=== PATIENT | male | born 1990 | race Two or more races ===

== ENCOUNTER 2022-04-05 08:16 | Emergency (ER) | payer MEDICAID, OTHER ==
[~2022-04-05] VITALS: Ht 185.4 cm; Wt 111.5 kg
[2022-04-05 08:28] VITALS: BP 117/61
[2022-04-05 08:56] LABS: Urine Bacteria NONE SEEN /hpf (None Seen); Urine Blood Negative /uL (Negative); Urine Hyaline Cast FEW /lpf (0 - 2); Urine Mucus FEW (None Seen); Urine Specific Gravity 1.032 (1.001-1.035); Urine WBC 2 /hpf (0 - 3)
[2022-04-05] MEDS ORDERED: SODIUM CHLORIDE 0.9% 1,000 ML IV ONE (09:00)
[2022-04-05] MEDS ORDERED: ONDANSETRON HCL 4 MG/2 ML VIAL IV ONE (09:00)
[2022-04-05] MEDS ORDERED: FAMOTIDINE (10MG/ML) 2ML VL IV ONE (09:00)
[2022-04-05 09:46] LABS: Basophils # (auto) 0 10 ^3/uL (0-0.2); Basophils % (auto) 0.4 % (0.0-2.0); Eosinophils # (auto) 0.2 10 ^3/uL (0-0.8); Hemoglobin 14.4 g/dL (13.5-17.5); Lymphocytes % (auto) 16.4 % (10.0-50.0); Mean Corpuscular Hemoglobin 27.1 pg (28.0-32.0); Mean Corpuscular Hgb Conc. 32.8 g/dL (32.0-36.0); Mean Corpuscular Volume 82.7 fL (80.0-100.0); Monocytes # (auto) 1.1 10 ^3/uL (0-1.3); Monocytes % (auto) 9.2 % (0.0-12.0); Neutrophils # (auto) 8.7 10 ^3/uL (1.6-8.6); Red Blood Cells 5.32 10^6/uL (4.5-5.90); Red Cell Distribution Width 13.3 % (11.8-14.3); White Blood Cell 12.1 10^3/uL (4.4-10.8)
[2022-04-05 09:49] LABS: Albumin 3.4 g/dL (3.4-5.0); Calcium 8.9 mg/dL (8.5-10.1); Potassium 3.6 mmol/L (3.5-5.1)
[2022-04-05 09:52] LABS: BUN/Creatinine Ratio 21.2; Bilirubin, Total 0.4 mg/dL (0.2-1.0); Total Protein 7.5 g/dL (6.4-8.2)
[2022-04-05] MEDS ORDERED: cefTRIAXone SOD 1,000 MG VL IM ONE (10:00)
[2022-04-05] MEDS ORDERED: ONDA-144 PO (10:28)
[2022-04-05] MEDS ORDERED: DICY10CA GT (10:28)
== END 2022-04-05 10:41 | disposition home or self-care (01) ==
LOC: ER 08:16
DX: K52.9 Noninfective gastroenteritis and colitis, unspecified (principal); J03.90 Acute tonsillitis, unspecified; K76.0 Fatty (change of) liver, not elsewhere classified
CPT/HCPCS: 36415; 76705; 80053; 81001; 83690; 85025; 96361; 96372; 96374; 96375; 99284; J0696; J2405; J3490; J7030

== ENCOUNTER 2024-11-24 14:09 | Emergency (ER) | payer MEDICAID, OTHER ==
[~2024-11-24] VITALS: Ht 185.4 cm; Wt 123.7 kg
[~2024-11-24 14:09] MED LIST: DICY10CA GT; ONDA-144 PO
--- NOTE | 2024-11-24 15:29 | ED.PDOC ---
Back pain HPI HPI Comments 34 y/o M, with no prior medical history presents to the ED for CC of back pain. Patient states, he has been experiencing lower back pain that radiates to his suprapubic abdominal area x5days. Patient reports, pain to worsen when moving and repositioning. Patient denies fall, lifting, bending, twisting, or strenuous activity. No other symptoms or modifying factors present at this time. Chief Complaint: Back Pain Time Seen by MD: 15:10 Primary Care Provider: UNKNOWN Reviewed Notes: Nurses Notes, Medications, Allergies Allergies: Coded Allergies: NO KNOWN ALLERGIES (Unverified , 04/05/22) Home Meds Active Scripts Dicyclomine Hcl (BENTYL CAPSULE) 10 Mg Cp, 20 MG GT TID, #21 CAP Prov:ANA MANCINI 04/05/22 Ondansetron (Zofran) 4 Mg Tab, 1 TAB PO Q6HR, #15 TAB Prov:ANA MANCINI 04/05/22 Information Source: Patient Mode of Arrival: Ambulatory Timing: Days Duration: Since onset Location of Back pain: (B) Buttocks Severity: Moderate Prehospital treatment: None Onset: Spontaneous History of: None Modifying Factors: Movement Associated signs and symptoms: None Past Medical History PAST MEDICAL HISTORY: Denies Surgical History: Denies all surgeries Family History Family History: Reviewed,noncontributory to illness, No family hx of Cancer, No family hx of DM, No family hx of Heart aurora, No family hx of HTN, No family hx ofKidney aurora, No family hx of Liver aurora, No family hx of Lung aurora, No family hx of Stroke Social History Smoker: Non-Smoker Alcohol: Denies ETOH Use Drugs: Denies Drug Use Lives In: Home Constitutional: denies: chills, diaphoresis, fatigue, fever, malaise, sweats, weakness, others EENTM: denies: blurred vision, double vision, ear bleeding, ear discharge, ear drainage, ear pain, ear ringing, eye pain, eye redness, hearing loss, mouth pain, mouth swelling, nasal discharge, nose bleeding, nose congestion, nose pain, photophobia, tearing, throat pain, throat swelling, voice changes, others Respiratory: denies: cough, hemoptysis, orthopnea, SOB at rest, shortness of breath, SOB with excertion, stridor, wheezing, others Cardiovascular: denies: chest pain, dizzy spells, diaphoresis, Dyspnea on exertion, edema, irregular heart beat, left arm pain, lightheadedness, palpitations, PND, syncope, others Gastrointestinal: reports: abdominal pain; denies: abdomen distended, blood streaked bowels, constipated, diarrhea, dysphagia, difficulty swallowing, hematemesis, melena, nausea, poor appetite, poor fluid intake, rectal bleeding, rectal pain, vomiting, others Genitourinary: denies: burning, dysuria, flank pain, frequency, hematuria, incontinence, penile discharge, penile sore, pain, testicle pain, testicle swelling, urgency, others Neurological: denies: dizziness, fainting, headache, left sided numbness, left sided weakness, numbness, paresthesia, pre-existing deficit, right sided numbness, right sided weakness, seizure, speech problems, tingling, tremors, weakness, others Musculoskeletal: reports: back pain; denies: gout, joint pain, joint swelling, muscle pain, muscle stiffness, neck pain, others Integumetry: denies: bruises, change in color, change in hair/nails, dryness, laceration, lesions, lumps, rash, wounds, others Allergic/Immunocompromised: denies: Difficulty Healing, Frequent Infections, Hives, Itching, others Hematologic/Lymphatic: denies: anemia, blood clots, easy bleeding, easy bruising, swollen glands, others Endocrine: denies: excessive hunger, excessive sweating, excessive thirst, excessive urination, flushing, intolerance to cold, intolerance to heat, unexplained weight gain, unexplained weight loss, others Psychiatric: denies: anxiety, bipolar disorder, depression, hopeless, panic disorder, schizophrenia, sleepless, suicidal, others All Other Systems: Reviewed and Negative Physical Exam General Appearance: No Apparent Distress, Normal HEENT: Normal ENT Inspection, Pharynx Normal, TMs Normal Neck: Full Range of Motion, Non-Tender, Normal, Normal Inspection Respiratory: Chest Non-Tender, Lungs Clear, No Accessory Muscle Use, No Respiratory Distress, Normal Breath Sounds Cardiovascular: No Edema, No JVD, No Murmur, No Gallop, Normal Peripheral Pulses, Regular Rate/Rhythm Breast Exam: Deferred Gastrointestinal: No Organomegaly, Non Tender, No Pulsatile Mass, Normal Bowel Sounds, Soft Genitalia: Deferred Pelvic: Deferred Rectal: Deferred Extremities: No calf tenderness, Normal capillary refill, Normal inspection, Normal range of motion, Non-tender, No pedal edema Musculoskeletal : Location: Bilateral Extremity Location: Other (gluteal tenderness) Apperance: Tenderness Neurologic: Alert, vending technician II-XII nml as Tested, No Motor Deficits, Normal Affect, Normal Mood, No Sensory Deficits Cerebellar Function: Normal Reflexes: Normal Skin: Dry, Normal Color, Warm Lymphatic: No Adenopathy Was a procedure done? Was a procedure done?: No Back Pain Differential Dx Differential Diagnosis: Cholelithiasis, Musculoskeletal Pain, Pyelonephritis, Urinary Tract Infection, Urolithiasis X-Ray, Labs, Meds, VS Vital Signs Date Time Temp Pulse Resp B/P (MAP) Pulse Ox O2 Delivery O2 Flow Rate FiO2 11/24/24 15:31 97.2 67 15 137/76 (96) 98 97.2 11/24/24 14:20 97.0 87 18 123/77 (92) 96 97.0 Lab Test 11/24/24 16:00 Range/Units Urine Color Yellow Yellow Urine Clarity Clear Clear Urine pH 5.5 5.0-9.0 Urine Specific [place] 1.030 1.001-1.035 Urine Protein Trace H Negative Urine Ketones Negative Negative Urine Blood Negative Negative /uL Urine Nitrite Negative Negative Urine Bilirubin Negative Negative Urine Urobilinogen Normal Negative mg/dL Urine Leukocyte Esterase Negative Negative /uL Urine RBC 1 0 - 3 /hpf Urine Microscopic WBC 1 0-3 /HPF Urine Squamous Epithelial Cells Few <5 /hpf Urine Bacteria None seen None Seen /hpf Urine Mucus Few None Seen Urine Glucose Normal Normal mg/dL Current Medications Medications (Trade) Dose Ordered Sig/Csotty Route Start Time Stop Time Status Last Admin Ketorolac Tromethamine (Toradol Injection) 60 mg ONCE ONCE IM 11/24/24 15:00 11/24/24 15:01 DC 11/24/24 15:[address] [address] Ph: [phone] DIAGNOSTIC IMAGING Diagnostic Imaging Report : [id number] Signed PATIENT: TAMIKO HERNANDEZ ACCT: [id number] UNIT: [id number] : 1990 LOC: ER ROOM / BED: / AGE / SEX: 34 / M ADM STATUS: REG ER SERVICE 56 ORDERING PHYSICIAN: LEORA DUMONT MD PROCEDURE(s): LHIP - L HIP COMPLETE XRAY REASON: pain ORDER NUMBER(s): [id number], ACCESSION NUMBER(s): [id number] EXAM: XY L HIP COMPLETE XRAY CLINICAL INDICATION: pain TECHNIQUE: XY L HIP COMPLETE XRAY Comparison: None FINDINGS/IMPRESSION: There is no evidence of acute fracture or dislocation. The visualized joint space is well maintained. The alignment is anatomical. There is no radiopaque foreign body. ATED BY: NGOZI LOPEZ MD DICTATED DATE/TIME: 11/24/241529 SIGNED BY: NGOZI LOPEZ MD SIGNED DATE/TIME: 11/24/241529 CC: [place] [id number] Ph: [phone] DIAGNOSTIC IMAGING Diagnostic Imaging Report : [id number] Signed PATIENT: TAMIKO HERNANDEZ ACCT: [id number] UNIT: [id number] : 1990 LOC: ER ROOM / BED: / AGE / SEX: 34 / M ADM STATUS: REG ER SERVICE 56 ORDERING PHYSICIAN: LEORA DUMONT MD PROCEDURE(s): RHIP - R HIP COMPLETE XRAY REASON: pain ORDER NUMBER(s): [id number], ACCESSION NUMBER(s): [id number] EXAM: XY R HIP COMPLETE XRAY CLINICAL INDICATION: pain TECHNIQUE: XY R HIP COMPLETE XRAY Comparison: None FINDINGS/IMPRESSION: There is no evidence of acute fracture or dislocation. The visualized joint space is well maintained. The alignment is anatomical. There is no radiopaque foreign body. ATED BY: NGOZI LOPEZ MD DICTATED DATE/TIME: 11/24/241529 SIGNED BY: NGOZI LOPEZ MD SIGNED DATE/TIME: 11/24/241529 CC: [place] [id number] Ph: [phone] DIAGNOSTIC IMAGING Diagnostic Imaging Report : [id number] Signed PATIENT: TAMIKO HERNANDEZ ACCT: [id number] UNIT: [id number] : 1990 LOC: ER ROOM / BED: / AGE / SEX: 34 / M ADM STATUS: REG ER SERVICE [id number] ORDERING PHYSICIAN: LEORA DUMONT MD PROCEDURE(s): LUMB2 - LUMBAR SPINE 3 VIEW REASON: pain ORDER NUMBER(s): [id number], ACCESSION NUMBER(s): [id number] INDICATION: pain TECHNIQUE: Frontal and lateral views of the lumbar spine were obtained. COMPARISON: None FINDINGS: 3. There are no fractures or subluxations. Vertebral body heights and disc spaces are well maintained. Paravertebral soft tissues are unremarkable. IMPRESSION: 1. Of the visualized spine, there is no evidence for fracture or subluxation. ATED BY: NGOZI LOPEZ MD DICTATED DATE/TIME: 11/24/241530 SIGNED BY: NGOZI LOPEZ MD SIGNED DATE/TIME: 11/24/241530 CC: Time of 1ST Reevaluation: 15:40 Reevaluation 1ST: Unchanged Time of 2ND Reevaluation: 16:59 Reevaluation 2ND: Resolved Patient Education/Counseling: Diagnosis, Treatment, Prognosis, Need For Follow Up Family Education/Counseling: No Family Present Additional Information The following tests were ordered, and results were reviewed by me: L-HIP XY, R- HIP XY, LUMBAR SPINE XY, UA I reviewed and agreed with the following test results read by other providers: L-HIP XY, R-HIP XY, LUMBAR SPINE XY I discussed treatment and results with medical personnel and: patient Comprehensive systems review obtained and negative except for what is stated in the HPI. Departure 1 Departure Time of Disposition: 17:00 Impression: Primary Impression: Hip strain Qualified Codes: S76.019A - Strain of muscle, fascia and tendon of unspecified hip, initial encounter Disposition: HOME / SELF CARE / HOMELESS Condition: Good Discharged With: Self Critical Care Note Critical Care Time?: No Stability Stability form required: No Heart Score Heart Score: Heart Score Response (Comments) Value History N/A 0 EKG N/A 0 Age N/A 0 Risk Factors N/A 0 Troponin N/A 0 Total 0 I personally scribed for [facility]OTN [facility] on 11/24/24 at 15:29. Electronically submitted by Sakshi Haider ([facility] [employer]). I personally scribed for LE[facility]A [facility]UMONT [facility] on 11/24/24 at 15:38. Electronically submitted by Sakshi Haider ([employer]). I personally scribed for LE[facility]A DUMONT MD ([facility] on 11/24/24 at 15:40. Electronically submitted by Sakshi Haider ([employer]). LEORA DUMONT MD November 24, 2024 15:29
--- NOTE | 2024-11-24 15:32 | DVH ---
EXAM: XY L HIP COMPLETE XRAY CLINICAL INDICATION: pain TECHNIQUE: XY L HIP COMPLETE XRAY Comparison: None FINDINGS/IMPRESSION: There is no evidence of acute fracture or dislocation. The visualized joint space is well maintained. The alignment is anatomical. There is no radiopaque foreign body.
--- NOTE | 2024-11-24 15:33 | DVH ---
EXAM: XY R HIP COMPLETE XRAY CLINICAL INDICATION: pain TECHNIQUE: XY R HIP COMPLETE XRAY Comparison: None FINDINGS/IMPRESSION: There is no evidence of acute fracture or dislocation. The visualized joint space is well maintained. The alignment is anatomical. There is no radiopaque foreign body.
--- NOTE | 2024-11-24 15:33 | DVH ---
INDICATION: pain TECHNIQUE: Frontal and lateral views of the lumbar spine were obtained. COMPARISON: None FINDINGS: 3. There are no fractures or subluxations. Vertebral body heights and disc spaces are well maintained. Paravertebral soft tissues are unremarkable. IMPRESSION: 1. Of the visualized spine, there is no evidence for fracture or subluxation.
[2024-11-24] MEDS: KETOROLAC TROMETH 60MG/2ML VIAL IM ONE (15:56)
[2024-11-24 16:08] LABS: Urine Bacteria None Seen /hpf (None Seen)
[2024-11-24 16:16] LABS: Urine Blood Negative /uL (Negative); Urine Clarity Clear (Clear); Urine Color Yellow (Yellow); Urine Mucus FEW (None Seen); Urine Protein, UAD TRACE (Negative); Urine Squamous Epithelial Cell FEW /hpf (<5); Urine Urobilinogen Normal (Negative); Urine WBC 1 /HPF (0-3); Urine pH 5.5 (5.0-9.0)
[2024-11-24 17:30] VITALS: BP 143/97; PULSE 67; RESP 16; TEMP 97.8; O2SAT 99
== END 2024-11-24 17:29 | disposition home or self-care (01) ==
LOC: ER 14:16
DX: S76.011A Strain of muscle, fascia and tendon of right hip, initial encounter (principal); X58.XXXA Exposure to other specified factors, initial encounter; Y93.89 Activity, other specified; Y92.89 Other specified places as the place of occurrence of the external cause; Y99.8 Other external cause status
CPT/HCPCS: 72100; 73502; 81001; 96372; 99284; J1885